=== PATIENT | female | born 1955 | race Caucasian/White ===

== ENCOUNTER → 2023-11-25 10:32 | Outpatient (BNVA) | payer OTHER, MEDICARE, SELFPAY | PROVIDERS: Visit Provider Nurse Practitioner Women's Health | DX: Z12.4 Encounter for screening for malignant neoplasm of cervix (principal); N95.0 Postmenopausal bleeding | CPT/HCPCS: 82670; 83001; 83002; 87624 ==

== ENCOUNTER → 2023-12-02 10:13 | Outpatient (BNVA) | payer OTHER, MEDICARE, SELFPAY | PROVIDERS: Visit Provider Nurse Practitioner Women's Health | DX: N95.0 Postmenopausal bleeding (principal); N85.00 Endometrial hyperplasia, unspecified | CPT/HCPCS: 76830 ==

== ENCOUNTER → 2023-12-03 09:59 | Outpatient (BNVA) | payer OTHER, MEDICARE, SELFPAY | PROVIDERS: Visit Provider Nurse Practitioner Women's Health | DX: E11.9 Type 2 diabetes mellitus without complications (principal) | CPT/HCPCS: 83036 ==